=== PATIENT | female | born 1960 | race Caucasian/White ===

== ENCOUNTER → 2018-04-14 | Outpatient (CLI) | payer BC ==
--- NOTE | 2018-04-14 12:40 | PCVCIMAG ---
APPROVED REPORT Study performed: 04/14/2018 09:07:15 EXAM: Comprehensive 2D, Doppler, and color-flow Echocardiogram Patient Location: Echo lab Room #: 2Status: routine BSA: 1.84 HR: 58 bpmBP: 116/80 mmHg Rhythm: Sinus Bradycardia Other Information Study Quality: Good Risk Factors: Cardiac Risk Factors: HTN, Hyperlipidemia Indications Mitral Valve Disease Palpitations Hypertension/HDD 2D Dimensions IVSd: 9.68 (7-11mm) LVDd: 55.14 mm PWd: 7.16 (7-11mm)Ascending Ao: 27.10 (22-36mm) LVDs: 33.99 (25-40mm) Left Atrium: 35.09 (27-40mm) Aortic Root: 20.24 mm LV Single Plane 4CH: 55.02 % LV Single Plane 2CH: 59.22 % Biplane EF: 57.2 % Volumes Left Atrial Volume (Systole) Single Plane 4CH: 57.85 mLSingle Plane 2CH: 56.07 mL Biplane LA Volume: 57.00 mLLA ESV Index: 31.00 mL/m2 Aortic Valve AoV Peak Nikolay.: 1.86 m/s AO Peak Gr.: 13.87 mmHgLVOT Max P.24 mmHg LVOT Max V: 1.03 m/s Mitral Valve E/A Ratio: 1.2 MV Decel. Time: 188.28 ms MV E Max Nikolay.: 1.54 m/s MV A Nikolay.: 1.31 m/s IVRT: 55.36 ms TDI E/Medial E': 14.00 Medial E' Nikolay.: 0.11 m/s Pulmonary Valve PV Peak Nikolay.: 0.90 m/sPV Peak Gr.: 3.21 mmHg Pulmonary Vein P Vein S: 0.59 m/sP Vein A: 0.25 m/s P Vein D: 0.52 m/sP Vein A Dur.: 100.3 msec P Vein S/D Ratio: 1.13 Tricuspid Valve TR Peak Nikolay.: 2.28 m/s TR Peak Gr.: 20.72 mmHg TV Vmax: 0.84 m/sPA Pressure: 28.00 mmHg Left Ventricle The left ventricle is normal size. There is normal LV segmental wall motion. There is normal left ventricular wall thickness. Left ventricular systolic function is normal. The left ventricular ejection fraction is within the normal range. LVEF is 55-60%. Right Ventricle The right ventricle is normal size. The right ventricular systolic function is normal. Atria The left atrium size is normal. The right atrium size is normal. Aortic Valve The aortic valve is normal in structure and function. No aortic regurgitation is present. There is no aortic valvular stenosis. Mitral Valve There is an echodense thickening at the tip of the anterior mitral valve leaflet, unchanged compared to previous echo from 2016. Mild to moderate mitral regurgitation. No evidence of mitral valve stenosis. Tricuspid Valve The tricuspid valve is normal in structure. Trace to mild tricuspid regurgitation. No apparent pulmonary hypertension. Pulmonic Valve The pulmonary valve is normal in structure. There is no pulmonic valvular regurgitation. Great Vessels The aortic root is normal in size. IVC is normal in size and collapses >50% with inspiration. Pericardium There is no pericardial effusion. <Conclusion> The left ventricle is normal size. There is normal left ventricular wall thickness. Left ventricular systolic function is normal. The right ventricle is normal size. The left atrium size is normal. The right atrium size is normal. The aortic valve is normal in structure and function. There is an echodense thickening at the tip of the anterior mitral valve leaflet, unchanged compared to previous echo from 2016. Mild to moderate mitral regurgitation. Trace to mild tricuspid regurgitation.
== END | disposition home or self-care (01) ==
LOC: PCVCIMAG 09:31
PROVIDERS: ATTEND Internal Medicine Cardiovascular Disease
DX: I34.0 Nonrheumatic mitral (valve) insufficiency (principal); R00.2 Palpitations; I10 Essential (primary) hypertension; E78.5 Hyperlipidemia, unspecified
CPT/HCPCS: 93306